=== PATIENT | male | born 1950 | race African-American/Black ===

== ENCOUNTER 2024-12-11 09:10 | Emergency (ER) | payer OTHER ==
[~2024-12-11] VITALS: Ht 185.4 cm; Wt 91.0 kg
[2024-12-11 09:15] VITALS: O2SAT 97
[2024-12-11] MEDS: KETOROLAC 30MG/ML VIAL IM ONE (09:30)
[2024-12-11] MEDS: HYDROCODONE/ACETAMINOPHEN 5/325MG TABLET PO ONE (11:34)
[2024-12-11] MEDS ORDERED: ACET-2708 MT (12:50)
[2024-12-11] MEDS ORDERED: DICL100G58 TP (12:50)
[2024-12-11 13:04] VITALS: BP 106/57; PULSE 82; RESP 16; TEMP 36.6; O2SAT 100
== END 2024-12-11 13:14 | disposition home or self-care (01) ==
LOC: ER 09:10
DX: M25.462 Effusion, left knee (principal); E11.9 Type 2 diabetes mellitus without complications; E78.00 Pure hypercholesterolemia, unspecified; I10 Essential (primary) hypertension; Z96.659 Presence of unspecified artificial knee joint; Z79.899 Other long term (current) drug therapy
CPT/HCPCS: 73562; 96372; 99283; J1885; Z7610